=== PATIENT | male | born 1935 | race Two or more races ===

== ENCOUNTER 2022-03-09 16:30 | Emergency (ER) | payer OTHER, MEDICAID ==
[~2022-03-09] VITALS: Ht 162.6 cm; Wt 69.9 kg
[2022-03-09] MEDS ORDERED: TETANUS-DIPTH-ACEL PERTUSSIS 0.5ML SYR Tdap IM ONE (16:45)
[2022-03-09] MEDS ORDERED: IBU600T PO (19:36)
[2022-03-09] MEDS ORDERED: CLIN150C PO (19:36)
[2022-03-09] MEDS ORDERED: INDO75CA PO (19:37)
[2022-03-09 19:49] VITALS: BP 145/78
== END 2022-03-09 19:53 | disposition home or self-care (01) ==
LOC: ER 16:30
DX: M10.9 Gout, unspecified (principal)
CPT/HCPCS: 73130; 90471; 90715